=== PATIENT | female | born 1955 | race Caucasian/White ===

== ENCOUNTER → 2018-02-08 17:57 | Outpatient (CLI) | payer BC | END | disposition home or self-care (01) | LOC: D.MAMMO 01-18 08:15 | DX: Z12.31 Encounter for screening mammogram for malignant neoplasm of breast (principal) ==

== ENCOUNTER → 2018-04-01 08:00 | Outpatient (CLI) | payer MEDICARE | END | disposition home or self-care (01) | LOC: D.MAMMO 08:00 | DX: R92.8 Other abnormal and inconclusive findings on diagnostic imaging of breast (principal) ==

== ENCOUNTER → 2018-10-13 07:53 | Outpatient (CLI) | payer MEDICARE ==
[~2018-10-13 07:53] MED LIST: HYDROCODON-ACE1 EA10 PO
[2018-10-14 08:24] VITALS: BMI 21.6
== END | disposition home or self-care (01) ==
LOC: D.CT 07:53
PROVIDERS: ATTEND Nurse Practitioner Family
DX: I77.89 Other specified disorders of arteries and arterioles (principal)

== ENCOUNTER 2018-10-14 07:41 | Day surgery (SDC) | payer MEDICARE ==
[~2018-10-14] VITALS: Ht 165.1 cm; Wt 59.0 kg
[2018-10-14 07:59] LABS: HEMATOCRIT 41.1 % (36.0-48.0); HEMOGLOBIN 13.7 g/dL (12-16); MCH 29.8 pg (26.0-34.0); MCHC 33.3 g/dL (31.0-37.0); MCV 89.5 fL (80.0-100.0); MEAN PLATELET VOLUME 10.3 fL (7.4-10.4); RBC 4.59 10x6/uL (4.00-5.40); RDW 13.6 % (11.5-14.5); WBC 5.5 10x3/uL (4.8-10.8)
[2018-10-14 08:24] VITALS: BP 150/89; Ht 165.1 cm; Wt 59.0 kg
[2018-10-14] MEDS ORDERED: HYDROCODON-ACE1 EA10 PO (10:45)
--- NOTE | 2018-10-14 12:47 | NUR ---
1213 UP TO BR WITH MINIMAL ASSISTANCE. BALANCE GOOD. NO DIZZINESS. PT ABLE TO VOID WITHOUT DIFFICULTY.
--- NOTE | 2018-10-14 12:49 | NUR ---
1217 IV DC'D. CATHETER TIP INTACT. NO BLEEDING AT SITE AND BANDAID APPLIED.
--- NOTE | 2018-10-15 12:26 | OP ---
PATIENT NAME: RAVI SAUER MEDICAL RECORD: [id number] :51 LOCATION:D.OPS ADMISSION DATE: SURGEON: MOHAN WESTON MD DATE OF OPERATION: 10/14/2018 PREOPERATIVE DIAGNOSES: Lumbar spinal stenosis and foraminal stenosis L4-L5 left with left L5 radiculopathy. POSTOPERATIVE DIAGNOSES: Lumbar spinal stenosis and foraminal stenosis L4-L5 left with left L5 radiculopathy. PROCEDURES: Lumbar laminotomy, medial facetectomy and foraminotomy at L4-L5 on the left. SURGEON: Mohan Weston MD ATTENDING PHYSICIAN: Leena Mcdaniel APN DESCRIPTION AND TECHNIQUE: After induction of general endotracheal anesthesia, the patient was rolled prone on a Ayaz frame. Lumbar spine was prepped and draped in usual sterile fashion. Fluoroscopic x-ray and spinal needle localized the L4-L5 interspace on the left side. After infiltration of 1:100,000 epinephrine and 1% lidocaine, a stab incision was created with an 11 blade on the left. A series of dilators was used to advance a METRx retractor to L4-L5 on the left. The level was confirmed with fluoroscopic x-ray. A microscope and Midas Kelby drill were used to perform a laminotomy, medial facetectomy and foraminotomy at L4-L5 on the left. Hypertrophied ligamentum flavum was removed with Cloward rongeurs. Following this, the L5 and L4 nerve roots were decompressed well. Meticulous hemostasis was maintained throughout the wound. Wound was irrigated with copious amounts of Ancef irrigant solution. The fascia was closed with 2-0 Vicryl suture. Subdermal layer was closed with 3-0 Vicryl suture. Skin was closed with amelia. A sterile dressing was applied to the wound. The patient was awakened in good condition and taken to recovery. All counts were reported as correct. Estimated blood loss was minimal. TRANSINT:[id number] Voice Confirmation ID: [id number] DOCUMENT ID: [id number] MOHAN WESTON MD at 1226 CC: [id number] DICTATION DATE: 10/14/18 1049 PIPE RECOVERY SPECIALIST: 10/14/18 1139 [facility] 10/14/18 [place] [address]
== END 2018-10-14 12:40 | disposition home or self-care (01) ==
LOC: D.OPS 07:41
PROVIDERS: Anesthesiology; ATTEND Neurological Surgery
DX: M48.061 Spinal stenosis, lumbar region without neurogenic claudication (principal); M54.16 Radiculopathy, lumbar region

== ENCOUNTER → 2018-12-01 17:00 | Outpatient (CLI) | payer MEDICARE ==
[2018-10-14 08:24] VITALS: BMI 21.6
[~2018-12-01 17:00] MED LIST changes: +ASPIRIN81 MG PO; +CIPRO500 MG PO; +VISTARIL50 MG PO; +oxyCODONE IR PO
== END | disposition home or self-care (01) ==
LOC: D.LABREF 17:00
PROVIDERS: ATTEND Orthopaedic Surgery
DX: M16.12 Unilateral primary osteoarthritis, left hip (principal)

== ENCOUNTER 2018-12-13 11:32 | Inpatient (IN) | payer MEDICARE ==
[~2018-12-13] VITALS: Ht 165.1 cm; Wt 61.4 kg
[~2018-12-13 11:32] MED LIST changes: -ASPIRIN81 MG PO; -CIPRO500 MG PO; -VISTARIL50 MG PO; -oxyCODONE IR PO
[2018-12-21 11:45] LABS: CALC OSMOLALITY 278 mosm/kg (275-300); CALCIUM 8.8 mg/dL (8.5-10.1); CARBON DIOXIDE 30.7 mmol/L (21.0-32.0); CHLORIDE - SERUM 104 mmol/L (98-107); CREATININE - SERUM 0.8 mg/dL (0.6-1.3); GLUCOSE 86 mg/dL (74-106); POTASSIUM - SERUM 3.9 mmol/L (3.5-5.1); SODIUM 140 mmol/L (136-145); UREA NITROGEN 14 mg/dL (7-18); eGFR NON AFRICAN AMERICAN 76 mL/min (90-120)
[2018-12-21 11:48] LABS: APTT 27.3 SECONDS (22.8-39.4); INR 0.97 (0.85-1.17); PROTIME 12.4 SECONDS (11.6-15.0)
[2018-12-21 12:05] LABS: BASOPHILS 0.3 % (0-2); EOSINOPHILS 1.8 % (0-7); HEMATOCRIT 41.5 % (36.0-48.0); HEMOGLOBIN 13.8 g/dL (12-16); IMMATURE GRANULOCYTES 0.3 % (0-5); LYMPHOCYTES 37.3 % (15-50); MCH 30.5 pg (26.0-34.0); MCHC 33.3 g/dL (31.0-37.0); MCV 91.8 fL (80.0-100.0); MEAN PLATELET VOLUME 10.7 fL (7.4-10.4); MONOCYTES 9.3 % (2-11); PLATELET COUNT 261 10x3/uL (130-400); RBC 4.52 10x6/uL (4.00-5.40); RDW 13.9 % (11.5-14.5)
[2018-12-21 12:28] LABS: APPEARANCE CLEAR (CLEAR); BILIRUBIN NEGATIVE (NEGATIVE); COLOR YELLOW (YELLOW); GLUCOSE NEGATIVE (NEGATIVE); KETONE NEGATIVE (NEGATIVE); NITRITE NEGATIVE (NEGATIVE); PROTEIN NEGATIVE (NEGATIVE); SPECIFIC GRAVITY 1.015 (1.005-1.020); UROBILINOGEN NORMAL (NORMAL)
[2018-12-21 12:30] LABS: BACTERIA FEW /hpf (NEGATIVE); EPITHELIAL CELLS 0-5 /hpf (0-5); MUCUS <1+ /lpf (NONE SEEN); WHITE CELLS - URINE 0-5 /hpf (NEGATIVE)
[2019-01-03] VITALS (11 sets, daily range): BP systolic 100–146; BP diastolic 55–79; Ht 165.1 cm; Wt 61.4 kg
[2019-01-03 08:00] LABS: BASOPHILS 0.8 % (0-2); EOSINOPHILS 3.2 % (0-7); HEMATOCRIT 41.8 % (36.0-48.0); HEMOGLOBIN 13.8 g/dL (12-16); MCH 30.2 pg (26.0-34.0); MCV 91.5 fL (80.0-100.0); MEAN PLATELET VOLUME 10.5 fL (7.4-10.4); MONOCYTES 8.4 % (2-11); NEUTROPHILS 47.6 % (40-80); PLATELET COUNT 249 10x3/uL (130-400); RBC 4.57 10x6/uL (4.00-5.40); RDW 13.8 % (11.5-14.5); WBC 3.8 10x3/uL (4.8-10.8)
[2019-01-03 08:01] LABS: APTT 27.5 SECONDS (22.8-39.4); INR 0.95 (0.85-1.17); PROTIME 12.2 SECONDS (11.6-15.0)
[2019-01-03 08:12] LABS: CALC OSMOLALITY 286 mosm/kg (275-300); CALCIUM 8.8 mg/dL (8.5-10.1); CARBON DIOXIDE 27.6 mmol/L (21.0-32.0); CHLORIDE - SERUM 108 mmol/L (98-107); CREATININE - SERUM 0.8 mg/dL (0.6-1.3); GLUCOSE 85 mg/dL (74-106); POTASSIUM - SERUM 4.3 mmol/L (3.5-5.1); SODIUM 144 mmol/L (136-145); UREA NITROGEN 14 mg/dL (7-18); eGFR NON AFRICAN AMERICAN 76 mL/min (90-120)
--- NOTE | 2019-01-03 10:27 | NUR ---
PLASMA BLADE SET TO 6/8 BOVIE PAD RIGHT HIP [id number] EXP 09/09/20 LAMINAR FLOW NOT IN USE. WORKING IN OR ROOM 5. TRAFFIC MONITORED IN AND OUT OF ROOM AND KEPT TO A MINIMUM. PREPPED FROM ILIAC CREST TO HANA BOOT WITH HIBICLENS/ALCOHOL AND DRIED WITH A TOWEL THEN PREPPED WITH CHLORAPREP. STERILE GOWN AND GLOVES WORN DURING PREP. WOUND IRRIGATED WITH 500CC NS WITH 10% STERILE BETADINE.
[2019-01-03 10:48] LABS: APPEARANCE CLEAR (CLEAR); BILIRUBIN NEGATIVE (NEGATIVE); COLOR YELLOW (YELLOW); GLUCOSE NEGATIVE (NEGATIVE); KETONE NEGATIVE (NEGATIVE); NITRITE NEGATIVE (NEGATIVE); PROTEIN NEGATIVE (NEGATIVE); SPECIFIC GRAVITY 1.015 (1.005-1.020); UROBILINOGEN NORMAL (NORMAL)
[2019-01-03 10:49] LABS: BACTERIA FEW /hpf (NEGATIVE); EPITHELIAL CELLS 0-5 /hpf (0-5); MUCUS <1+ /lpf (NONE SEEN); RED CELLS - URINE NONE SEEN /hpf (0-5); WHITE CELLS - URINE 0-5 /hpf (NEGATIVE)
--- NOTE | 2019-01-03 12:30 | NUR ---
RECEIVED TO ROOM 2210 VIA BED FROM PACU. A/O X3. AT BEDSIDE. SKIN INTACT WITHOUT REDNESS EXCEPT INCISION TO LEFT HIP WHICH HAS A PROVENA IN PLACE. DENIES NEEDS. ICE PLACED TO LEFT HIP. INSTUCTED IN USE OF IS WITH RETURN DEMONSTRATION.
--- NOTE | 2019-01-03 13:02 | OP ---
PATIENT NAME: RAVI SAUER MEDICAL RECORD: [id number] :51 LOCATION:D.MS Vital2210 ADMISSION DATE:01/03/19 SURGEON: SATISH DAWSON DO DATE OF OPERATION: 01/03/2019 PROCEDURE PERFORMED: Left total hip arthroplasty. PREOPERATIVE DIAGNOSIS: Left hip osteoarthritis. POSTOPERATIVE DIAGNOSIS: Left hip osteoarthritis. INDICATIONS: Ms. Sauer is a 63-year-old female, who has tried all manner of nonoperative treatment for her left hip osteoarthritis. She had the right hip replaced a few years ago, doing well with it and tired of dealing with the pain in the left hip and wanted something done surgically. She was informed of the risks including infection, bleeding, damage to nerves and vessels, need for further surgery, blood clots, failure implant, fracture, and even and she signed the consent. SURGEON: Satish Dawson DO DESCRIPTION OF PROCEDURE: The patient was given a block by anesthesia. I was assisted by Mitchel Hernández and Alice Lau, they are both certified surgical first assists. The patient was then taken to the operative suite, laid in supine position, given general anesthetic and intubated. The patient was then moved over to the [place] table and positioned. The left hip was then prepped and draped in sterile fashion. I reprepped prior to putting the Ioban over the incision site without ChloraPrep. The Ioban sheath was then put over the hip. The time-out was performed and everyone with the correct side, site, patient, and procedure. She received a gram of Ancef and 80 mg of gentamicin preoperatively. The incision then began after the time-out had been performed over the tensor fascia amparo. Careful dissection was made down to the tensor fascia amparo fascia. This was incised. The fascia was taken anterior with muscle belly posterior and the interval between the rectus was opened. The ascending branch of the lateral femoral circumflex was then identified and coagulated with the Aquamantys and tied off on either side. Once it was coagulated and tied, it was cut through and then the hip capsule was exposed. Hohmann retractor was then placed on either side of the neck of the femur and then the capsule was then opened with the Bovie and pickup. The capsule was then tagged and the retractor was moved inside the capsule retracting the neck. The neck was then cut and the head was removed. The acetabulum was then exposed and a Charnley was placed. The labrum was removed as well as the pulvinar. We then began reaming first with a 46 to medialize and then up to a 52 for the cup. Pulvinar had been removed as well. Any bleeding was coagulated with Aquamantys. The cup was then impacted and the liner was put in. This was done under x-ray showing good position of the cup and it was down seated well and not loose. The femur was then exposed and the canal finder was used as well as the loydEversnap cutter and then I broached up to a 10 and 10 fit very well and this was a standard neck and it was reduced. Once it was reduced, X-rays were taken on AP pelvis and the AP of the hip. No fracture is seen in the femur and it seemed to be in good alignment with the other hip as far as length goes. This was then removed and the actual 10 stem was put down and a standard neck with high offset. The hip was then reduced to dual mobility cuff and fit very well and had good motion, internal and external rotation. At that time, Betadine solution with 17.3 mL of Betadine and 500 mL of normal saline was then introduced into the wound. X-rays were OPERATIVE REPORT [id number] RAVI SAUER taken and seen to have good position similar to the trials. No fracture was seen in the femur and good length on AP pelvis. Once it had been 3 minutes, solution was removed from the wound by suction and irrigation, irrigated with a liter of normal saline. Sudheer was then placed in the wound as well as vancomycin-tobramycin powder and the tensor fascia amparo fascia was closed with #1 Vicryl, first a zerssa-tb-fkuyo and then a running locking stitch. Once that was completed, this layer was irrigated and then the skin was closed with 2-0 Vicryl in an inverted interrupted fashion and 4-0 Monocryl ran on the skin. A Prevena Plus was placed on the wound. She was then awakened and taken to recovery in stable condition. BLOOD LOSS: Approximately 50 mL. COMPLICATIONS: None. TRANSINT:[id number] Voice Confirmation ID: [id number] DOCUMENT ID: [id number] SATISH DAWSON DO at 1302 CC: [id number] DICTATION DATE: 01/03/19 1119 ASSOCIATE ENTERTAINMENT EDITOR: 01/03/19 1218 ADM IN [facility] [address] [place] [address]
--- NOTE | 2019-01-03 15:04 | NUR ---
BP IS HOLDING STEADY IN THE 110-118 RANGE. REQUESTED AND GIVNE ONE OXY IR PO FOR C/O LEFT HIP PAIN LEVEL 8. WILL MONITOR.
--- NOTE | 2019-01-03 19:33 | NUR ---
RESTING QUIETLY IN BED. DNEIES NEEDS. NO CHANGES NOTED.
--- NOTE | 2019-01-03 20:00 | NUR ---
ALERT SITTING UP IN BED, PREVA WOUND VAC IN USE TO LEFT HIP AREA, DENIES PAIN OR NEEDS AT THIS TIME,SEE SHIFT ASSESSNMENT, CALL LASHELL BOYD
[2019-01-04] VITALS: BP 93/48
--- NOTE | 2019-01-04 07:00 | NUR ---
ALERT AND ORIENTED, RESTING IN BED. NO C/O PAIN. NO S/S OF ACUTE DISTRESS NOTED. POD #1 LEFT HIP, PROVENA WOUND VAC PRESENT. IV TO LEFT HAND, NS INFUSING @ 50ML/HR. SITE PATENT WITHOUT REDNESS OR SWELLING. DENIES ANY NEEDS AT THIS TIME. CALL LIGHT IN REACH. WILL CONTINUE TO MONITOR.
[2019-01-04 07:21] LABS: BASOPHILS 0.1 % (0-2); EOSINOPHILS 0 % (0-7); HEMATOCRIT 36.2 % (36.0-48.0); HEMOGLOBIN 11.3 g/dL (12-16); IMMATURE GRANULOCYTES 0.1 % (0-5); LYMPHOCYTES 11.4 % (15-50); MCHC 31.2 g/dL (31.0-37.0); MEAN PLATELET VOLUME 10.8 fL (7.4-10.4); MONOCYTES 8.6 % (2-11); NEUTROPHILS 79.8 % (40-80); PLATELET COUNT 234 10x3/uL (130-400); RBC 3.77 10x6/uL (4.00-5.40)
[2019-01-04 07:26] LABS: CALCIUM 7.9 mg/dL (8.5-10.1); CARBON DIOXIDE 25.1 mmol/L (21.0-32.0); POTASSIUM - SERUM 4.1 mmol/L (3.5-5.1)
[2019-01-04 08:13] VITALS: BP 84/52
--- NOTE | 2019-01-04 10:27 | MORECARE ---
CASE MANAGEMENT DISCHARGE SUMMARY PATIENT: RAVI SAUER UNIT: [id number] ADM DATE: 01/03/19 AGE: 63 : 53 SEX: F ROOM/BED: D.2210 AUTHOR: NESTOR ALEXIS PHYSICIAN: REFERRING PHYSICIAN: LALO DAWSON DO DATE OF SERVICE: 01/04/19 Discharge Plan Patient Name: RAVI SAUER [facility] [facility] 1955 Planned Disposition: Home Anticipated Discharge Date: 01/04/19 Discharge Date: Expected LOS: 1 Initial Reviewer: [email or web address] Initial Review Date: 01/03/2019 Generated: 01/04/19 11:27 am DCPIA - Discharge Planning Initial Assessment Updated by [email or web address]: Ursula Travis on 01/04/19 10:25 am * Is the patient Alert and Oriented? Yes * How many steps to enter\exit or inside your home? One * PCP Jeana Mcdaniel APRN @ Dr. Greenwood's office * Pharmacy [facility] [address] * Preadmission Environment Home with Family * ADLs Independent * Equipment None * List name and contact numbers for known caregivers / representatives who currently or will assist patient after discharge: Marc Sauer - [facility] - [phone] * Verbal permission to speak to the caregivers and representatives has been obtained from the patient. Yes * Community resources currently utilized None * Additional services required to return to the preadmission environment? No * Can the patient safely return to the preadmission environment? Yes * Has this patient been hospitalized within the prior 30 days at any hospital? No Patient Name: RAVI SAUER Page [phone] at 1027 All edits/amendments must be made on the electronic document DICTATION DATE: 01/04/19 1027 RETREADER: GABRIELA 01/04/19 1027 RPT#: [id number] DC DATE: STATUS: ADM [facility] [address] [place] [address] END OF REPORT
--- NOTE | 2019-01-04 10:36 | MORECARE ---
CASE MANAGEMENT DISCHARGE SUMMARY PATIENT: RAVI SAUER UNIT: [id number] ADM DATE: 01/03/19 AGE: 63 : 53 SEX: F ROOM/BED: D.2210 AUTHOR: VANESA,DOC PHYSICIAN: REFERRING PHYSICIAN: LALO DAWSON DO DATE OF SERVICE: 01/04/19 Discharge Plan Patient Name: RAVI SAUER Facility: [facility]:[place] : 1955 Planned Disposition: Home Anticipated Discharge Date: 01/04/19 Discharge Date: Expected LOS: 1 Initial Reviewer: [email or web address] Initial Review Date: 01/03/2019 Generated: 01/04/19 11:36 am Comments DCP- Discharge Planning Updated by [email or web address]: Ursula Travis on 01/04/19 9:[address] DC PLAN: Return home with her at [place]. ANTICIPATED DC NEEDS: Walker and bedside commode. CM met with patient and her to complete initial dc planning assessment. CM educated patient on the CM role and verbal consent given by patient to complete assessment. CM verified patient's address, phone number, and emergency contact phone numbers. Patient lives at home with her . CV TECH she reports she is independent in her care at home. She has one step to enter into her home. She is ambulating with a RW in the hospital with therapy. At discharge patient plans to return home with her and feels this is a safe discharge. CM discussed availability of home health, rehab services, and medical equipment. Patient is requesting a rolling walker and a bedside commode for discharge. AYAN form presented, explained and signed by the patient for [facility] [facility]. Signed form placed on patient's chart and a signed form left with the patient. Order received for walker and bsc. Patient reports her will transport him/her home at time of discharge. CM will continue to follow and will assist as needed with dc plans/needs. Ursula Travis RN, [facility] DCPIA - Discharge Planning Initial Assessment Updated by [email or web address]: Ursula Travis on 01/04/19 10:25 am * Is the patient Alert and Oriented? Yes * How many steps to enter\exit or inside your home? One * PCP Jeana Mcdaniel APRN @ Dr. Greenwood's office * Pharmacy [facility] [address] * Preadmission Environment Home with Family * ADLs Independent * Equipment None * List name and contact numbers for known caregivers / representatives who currently or will assist patient after discharge: Marc Sauer - - [phone] * Verbal permission to speak to the caregivers and representatives has been obtained from the patient. Yes * Community resources currently utilized None * Additional services required to return to the preadmission environment? No * Can the patient safely return to the preadmission environment? Yes * Has this patient been hospitalized within the prior 30 days at any hospital? No External Providers External Provider: OTHER-OTHER Next Contact Date: Service Request Date: Service Type: Resolution: Reviewer: Comments: Last DP export: 01/04/19 9:27 a Patient Name: RAVI SAUER Page [phone] at 1036 All edits/amendments must be made on the electronic document DICTATION DATE: 01/04/19 1036 PEARL DIVER: GABRIELA 01/04/19 1036 RPT#: [id number] DC DATE: STATUS: ADM IN [facility] [address] [place] [address] END OF REPORT
--- NOTE | 2019-01-04 10:45 | NUR ---
I have reviewed this patient and I concur with the Shift Assessment completed by the Licensed Practical Nurse today this shift.
[2019-01-04 11:36] VITALS: BP 98/56
--- NOTE | 2019-01-04 12:09 | MORECARE ---
CASE MANAGEMENT DISCHARGE SUMMARY PATIENT: RAVI SAUER UNIT: [id number] ADM DATE: 01/03/19 AGE: 63 : 53 SEX: F ROOM/BED: D.2210 AUTHOR: VANESA,DOC PHYSICIAN: REFERRING PHYSICIAN: LALO DAWSON DO DATE OF SERVICE: 01/04/19 Discharge Plan Patient Name: RAVI SAUER Facility: [facility]:[place] : 1955 Planned Disposition: Home Anticipated Discharge Date: 01/04/19 Discharge Date: Expected LOS: 1 Initial Reviewer: [email or web address] Initial Review Date: 01/03/2019 Generated: 01/04/19 1:09 pm Comments DCP- Discharge Planning Updated by [email or web address]: Ursula Travis on 01/04/19 9:[address] DC PLAN: Return home with her at [place]. ANTICIPATED DC NEEDS: Walker and bedside commode. CM met with patient and her to complete initial dc planning assessment. CM educated patient on the CM role and verbal consent given by patient to complete assessment. CM verified patient's address, phone number, and emergency contact phone numbers. Patient lives at home with her . OIL CHANGER she reports she is independent in her care at home. She has one step to enter into her home. She is ambulating with a RW in the hospital with therapy. At discharge patient plans to return home with her and feels this is a safe discharge. CM discussed availability of home health, rehab services, and medical equipment. Patient is requesting a rolling walker and a bedside commode for discharge. AYAN form presented, explained and signed by the patient for [facility] [facility]. Signed form placed on patient's chart and a signed form left with the patient. Order received for walker and bsc. Patient reports her will transport him/her home at time of discharge. CM will continue to follow and will assist as needed with dc plans/needs. Ursula Travis RN, [facility] DCPIA - Discharge Planning Initial Assessment Updated by [email or web address]: Ursula Travis on 01/04/19 10:25 am * Is the patient Alert and Oriented? Yes * How many steps to enter\exit or inside your home? One * PCP Jeana Mcdaniel APRN @ Dr. Greenwood's office * Pharmacy [facility] [address] * Preadmission Environment Home with Family * ADLs Independent * Equipment None * List name and contact numbers for known caregivers / representatives who currently or will assist patient after discharge: aMrc Sauer - [facility] - [phone] * Verbal permission to speak to the caregivers and representatives has been obtained from the patient. Yes * Community resources currently utilized None * Additional services required to return to the preadmission environment? No * Can the patient safely return to the preadmission environment? Yes * Has this patient been hospitalized within the prior 30 days at any hospital? No External Providers [facility] Next Contact Date: Service Request Date: Service Type: Resolution: Reviewer: Comments: Last DP export: 01/04/19 9:36 a Patient Name: RAVI SAUER Page [phone] at 1209 All edits/amendments must be made on the electronic document DICTATION DATE: 01/04/19 120 IMPLEMENTATION ADVISOR: GABRIELA 01/04/19 1209 RPT#: [id number] DC DATE: STATUS: ADM IN [facility] [address] [place] [address] END OF REPORT
--- NOTE | 2019-01-04 12:18 | MORECARE ---
CASE MANAGEMENT DISCHARGE SUMMARY PATIENT: RAVI SAUER UNIT: [id number] ADM DATE: 01/03/19 AGE: 63 : 51 SEX: F ROOM/BED: D.2210 AUTHOR: VANESA,NESTOR PHYSICIAN: REFERRING PHYSICIAN: LALO DAWSON DO DATE OF SERVICE: 01/04/19 Discharge Plan Patient Name: RAVI SAUER Facility: [facility]:[place] : 1955 Planned Disposition: Home Anticipated Discharge Date: 01/04/19 Discharge Date: Expected LOS: 1 Initial Reviewer: [email or web address] Initial Review Date: 01/03/2019 Generated: 01/04/19 1:18 pm Comments DCP- Discharge Planning Updated by [email or web address]: Ursula Travis on 01/04/19 11:[address] [facility] not able to provide patient with walker and bsc. CM met with patient and she did not have a further DME preference. [facility] chose and referral faxed. Cm spoke to [employer] and they will deliver equipment to patient's home today. Will call patient's spouse for delivery arrangements. Ursula Travis RN,[facility] DCP- Discharge Planning Updated by [email or web address]: Ursula Travis on 01/04/19 9:[address] DC PLAN: Return home with her at [place]. ANTICIPATED DC NEEDS: Walker and bedside commode. CM met with patient and her to complete initial dc planning assessment. CM educated patient on the CM role and verbal consent given by patient to complete assessment. CM verified patient's address, phone number, and emergency contact phone numbers. Patient lives at home with her . PRODUCT DEMONSTRATOR she reports she is independent in her care at home. She has one step to enter into her home. She is ambulating with a RW in the hospital with therapy. At discharge patient plans to return home with her and feels this is a safe discharge. CM discussed availability of home health, rehab services, and medical equipment. Patient is requesting a rolling walker and a bedside commode for discharge. AYAN form presented, explained and signed by the patient for [facility] [facility]. Signed form placed on patient's chart and a signed form left with the patient. Order received for walker and bsc. Patient reports her will transport him/her home at time of discharge. CM will continue to follow and will assist as needed with dc plans/needs. Ursula Travis RN, [facility] DCPIA - Discharge Planning Initial Assessment Updated by [email or web address]: Ursula Travis on 01/04/19 10:25 am * Is the patient Alert and Oriented? Yes * How many steps to enter\exit or inside your home? One * PCP Jeana Mcdaniel APRN @ Dr. Greenwood's office * Pharmacy [facility] on [address] * Preadmission Environment Home with Family * ADLs Independent * Equipment None * List name and contact numbers for known caregivers / representatives who currently or will assist patient after discharge: Marc Sauer - - [phone] * Verbal permission to speak to the caregivers and representatives has been obtained from the patient. Yes * Community resources currently utilized None * Additional services required to return to the preadmission environment? No * Can the patient safely return to the preadmission environment? Yes * Has this patient been hospitalized within the prior 30 days at any hospital? No Last DP export: 01/04/19 11:09 a Patient Name: RAVI SAUER Page [phone] at 1218 All edits/amendments must be made on the electronic document DICTATION DATE: 01/04/191217 MANAGEMENT TRAINEE PROGRAM STORES: GABRIELA 01/04/191217 RPT#: [id number] DC DATE: STATUS: ADM IN [facility] [address] [place] [address] END OF REPORT
[2019-01-04 12:25] VITALS: BP 87/51
--- NOTE | 2019-01-04 13:43 | NUR ---
D/C'd Ulta pump and attached dressing to Prevena Plus. Instructions provided for pt and spouse about pump function, purpose and troubleshooting. Both voiced their understanding. Prevena Plus patient guide also provided.
[2019-01-04 14:51] LABS: APPEARANCE CLEAR (CLEAR); BACTERIA MODERATE /hpf (NEGATIVE); BILIRUBIN NEGATIVE (NEGATIVE); COLOR YELLOW (YELLOW); EPITHELIAL CELLS OCC /hpf (0-5); GLUCOSE NEGATIVE (NEGATIVE); KETONE NEGATIVE (NEGATIVE); NITRITE NEGATIVE (NEGATIVE); PROTEIN NEGATIVE (NEGATIVE); RED CELLS - URINE 0-5 /hpf (0-5); UROBILINOGEN NORMAL (NORMAL)
[2019-01-04] MEDS ORDERED: ASPIRIN81 MG PO (15:11)
[2019-01-04] MEDS ORDERED: oxyCODONE IR PO (15:11)
[2019-01-04] MEDS ORDERED: VISTARIL50 MG PO (15:11)
[2019-01-04] MEDS ORDERED: CIPRO500 MG PO (15:12)
--- NOTE | 2019-01-04 16:01 | NUR ---
DISCHARGED PATIENT HOME VIA WHEELCHAIR WITH FAMILY ACCOMPANIED BY STAFF. DISCONTINUED IV, CATHETER TIP INTACT. WENT OVER DISCHARGE INSTRUCTIONS WITH PATIENT, VERBALIZED UNDERSTANDING. SENT HOME [employer] FOR DRESSING CHANGE TO LEFT KNEE. DENIES ANYTHING FURTHER.
--- NOTE | 2019-01-04 16:49 | NUR ---
DISCHARGED PATIENT HOME VIA WHEELCHAIR WITH FAMILY ACCOMPANIED BY STAFF. DISCONTINUED IV, CATHETER TIP INTACT. WENT OVER DISCHARGE INSTRUCTIONS WITH PATIENT, VERBALIZED UNDERSTANDING. DENIES ANYTHING FURTHER.
--- NOTE | 2019-01-05 09:13 | MORECARE ---
CASE MANAGEMENT DISCHARGE SUMMARY PATIENT: RAVI SAUER UNIT: [id number] ADM DATE: 01/03/19 AGE: 63 : 51 SEX: F ROOM/BED: D.2210 AUTHOR: VANESA,NESTOR PHYSICIAN: REFERRING PHYSICIAN: LALO DAWSON DO DATE OF SERVICE: 01/05/19 Discharge Plan Patient Name: RAVI SAUER Facility: [facility]:[place] : 1955 Planned Disposition: Home Anticipated Discharge Date: 01/04/19 Discharge Date: 01/04/2019 Expected LOS: 1 Initial Reviewer: [email or web address] Initial Review Date: 01/03/2019 Generated: 01/05/19 10:13 am DCP- Discharge Planning Updated by [email or web address]: Ursula Travis on 01/04/19 11:[address] [employer] not able to provide patient with walker and bsc. CM met with patient and she did not have a further DME preference. [facility] chose and referral faxed. Cm spoke to [employer] and they will deliver equipment to patient's home today. Will call patient's spouse for delivery arrangements. Ursula Travis RN,[facility] DCP- Discharge Planning Updated by [email or web address]: Ursula Travis on 01/04/19 9:[address] DC PLAN: Return home with her at [place]. ANTICIPATED DC NEEDS: Walker and bedside commode. CM met with patient and her to complete initial dc planning assessment. CM educated patient on the CM role and verbal consent given by patient to complete assessment. CM verified patient's address, phone number, and emergency contact phone numbers. Patient lives at home with her . FILAMENT WELDER she reports she is independent in her care at home. She has one step to enter into her home. She is ambulating with a RW in the hospital with therapy. At discharge patient plans to return home with her and feels this is a safe discharge. CM discussed availability of home health, rehab services, and medical equipment. Patient is requesting a rolling walker and a bedside commode for discharge. AYAN form presented, explained and signed by the patient for [employer] [facility]. Signed form placed on patient's chart and a signed form left with the patient. Order received for walker and bsc. Patient reports her will transport him/her home at time of discharge. CM will continue to follow and will assist as needed with dc plans/needs. Ursula Travis RN, [facility] DCPIA - Discharge Planning Initial Assessment Updated by [email or web address]: Ursula Travis on 01/04/19 10:25 am * Is the patient Alert and Oriented? Yes * How many steps to enter\exit or inside your home? One * PCP Jeana Mcdaniel APRN @ Dr. Greenwood's office * Pharmacy [facility] [address] * Preadmission Environment Home with Family * ADLs Independent * Equipment None * List name and contact numbers for known caregivers / representatives who currently or will assist patient after discharge: Marc Sauer - - [phone] * Verbal permission to speak to the caregivers and representatives has been obtained from the patient. Yes * Community resources currently utilized None * Additional services required to return to the preadmission environment? No * Can the patient safely return to the preadmission environment? Yes * Has this patient been hospitalized within the prior 30 days at any hospital? No Last DP export: 01/04/19 11:18 a Patient Name: RAVI SAUER Page [id number] at 0913 All edits/amendments must be made on the electronic document DICTATION DATE: 01/05/19912 ADMINISTRATIVE CLERK: GABRIELA 01/05/19912 RPT#: [id number] DC DATE:01/04/19 STATUS: DIS IN [place] [id number] [place] [address] END OF REPORT
== END 2019-01-04 16:51 | disposition home or self-care (01) | DRG 470 ==
LOC: D.SDCHOLD 12-21 10:00 → D.MS 01-03 07:14 → D.SDCHOLD 01-03 07:14 → D.MS 01-03 11:58 → D.SDCHOLD 01-03 15:15 → D.MS 01-04 16:51
PROVIDERS: Internal Medicine Nephrology; ADMIT Orthopaedic Surgery; ATTEND Orthopaedic Surgery
PROC: 0SRB0J9 Replacement of Left Hip Joint with Synthetic Substitute, Cemented, Open Approach (ICD-10-PCS; principal; 2019-01-03 09:30)
DX: M16.12 Unilateral primary osteoarthritis, left hip (principal); N39.0 Urinary tract infection, site not specified; M54.9 Dorsalgia, unspecified

== ENCOUNTER 2020-06-13 09:30 | Outpatient (CLI) | payer MEDICARE ==
[2019-01-03 12:32] VITALS: BMI 22.5
[~2020-06-13 09:30] MED LIST changes: +ASPIRIN81 MG PO; +CIPRO500 MG PO; +VISTARIL50 MG PO; +oxyCODONE IR PO
== END 2020-06-13 23:59 | disposition home or self-care (01) ==
LOC: D.MAMMO 09:30
PROVIDERS: ATTEND Nurse Practitioner Family
DX: Z12.31 Encounter for screening mammogram for malignant neoplasm of breast (principal)